=== PATIENT | female | born 1985 | race American Indian/Alaskan Native ===

== ENCOUNTER 2018-01-10 07:34 | Day surgery (SDC) | payer BC ==
[~2018-01-10 07:34] MED LIST: NACL 0.9% IR ONE
[2018-01-10] MEDS ORDERED: TYLENOL PO PRN (09:02)
[2018-01-10] MEDS ORDERED: ZOFRAN IV PRN (09:02)
[2018-01-10] MEDS ORDERED: TORADOL IV PRN (09:02)
--- NOTE | 2018-01-10 09:10 | Anesthesia Consultation ---
Anesthesia Consult and Med Hx Date of service: 01/10/18 - Airway Anesthetic Teeth Evaluation: Good ROM Head & Neck: Adequate Mental/Hyoid Distance: Adequate Mallampati Class: Class II Intubation Access Assessment: Probably Good - Pulmonary Exam CTA: Yes - Pre-Operative Health Status ASA Pre-Surgery Classification: ASA1 Proposed Anesthetic Plan: General - Pulmonary Hx Smoking: No - Cardiovascular System Hx Hypertension: No - Central Nervous System Hx Neuromuscular Disorder: No Hx Psychiatric Problems: No - Other Systems Hx Alcohol Use: Yes (OCCAS) Hx Substance Use: No
--- NOTE | 2018-01-10 09:10 | Anesthesia Day of Surgery ---
Anesthesia Day of Surgery - Day of Surgery Patient Examined: Yes Patient H&P Reviewed: Yes Patient is NPO: Yes
[2018-01-10] MEDS ORDERED: NACL BACTERIOSTATIC INFILTRATI ONE (09:19)
[2018-01-10] MEDS ORDERED: SUBLIMAZE ONE ×2 (09:19→10:51)
[2018-01-10] MEDS ORDERED: DIPRIVAN 10 MG/ML IV ONE ×2 (09:19→10:24)
--- NOTE | 2018-01-10 09:21 | Discharge Summary ---
Short Stay Discharge Plan Activity: no restrictions Weight Bearing Status: Full Weight Bearing Diet: regular Wound: remove dressing (72hrs) Follow up with: PRIMARY CAREMD [Primary Care Provider] - 6 Weeks WORK,ESTUARDO Rodney JR, MD [Staff Physician] - 7 Days
--- NOTE | 2018-01-10 09:22 | Short Stay Summary ---
Short Stay Documentation Date of service: 01/10/18 - Allergies and Medications Current Medications: Allergies Sulfa (Sulfonamide Antibiotics) Allergy (Verified 01/07/18 14:48) Itching Home Medications Medication Instructions Recorded Confirmed Last Taken Type No Known Home Medications [No 01/07/18 01/07/18 Unknown History Reported Home Medications] Active Medications Acetaminophen (Tylenol) 650 mg PO ONCE PRN PRN Reason: Pain, Mild (1-3) Stop: 01/10/18 18:00 Famotidine (Pepcid) 20 mg IV PREOP NR Stop: 01/10/18 23:59 Hydromorphone HCl (Dilaudid) 0.5 mg IV Q10MIN PRN PRN Reason: Pain , Severe (7-10) Stop: 01/10/18 18:00 Lactated Ringer's (Lactated Ringers) 1,000 mls @ 42 mls/hr IV DIRECT ADRIA Ketorolac Tromethamine (Toradol) 15 mg IV ONCE PRN PRN Reason: Pain, Mild (1-3) Stop: 01/10/18 18:00 Midazolam HCl (Versed) 2 mg IV PREOP NR Stop: 01/10/18 23:59 Ondansetron HCl (Zofran) 4 mg IV ONCE PRN PRN Reason: Nausea And Vomiting Stop: 01/10/18 18:00 - Brief post op/procedure progress note Date of procedure: 01/10/18 Pre-op diagnosis: Macromastia Post-op diagnosis: same Procedure: Sloan. Breast REduction Anesthesia: GETA Findings: RT Breast LT Breast Surgeon: ESTUARDO GILBERT JR Estimated blood loss: 50-100ml Specimen disposition: to lab Condition: stable - Disposition Condition at discharge: Good Disposition: DC-01 TO HOME OR SELFCARE Short Stay Discharge Plan Follow up with: ESTUARDO GILBERT JR, MD [Staff Physician] - 7 Days PRIMARY CARE, [Primary Care Provider] - 6 Weeks
[2018-01-10] MEDS ORDERED: LACTATED RINGERS 1,000 ML IV SCH (10:00)
[2018-01-10] MEDS ORDERED: ANCEF/STERILE WATER 2 GM/20 ML IV NR (10:00)
[2018-01-10] MEDS ORDERED: VERSED IV NR (10:00)
[2018-01-10] MEDS ORDERED: PEPCID IV NR (10:00)
[2018-01-10] MEDS ORDERED: DECADRON ONE (10:13)
[2018-01-10] MEDS ORDERED: QUELICIN ONE (10:13)
[2018-01-10] MEDS ORDERED: ZOFRAN ONE (10:13)
[2018-01-10] MEDS ORDERED: ZEMURON IV ONE (10:13)
[2018-01-10] MEDS ORDERED: XYLOCAINE MPF 2% ONE (10:13)
[2018-01-10] MEDS ORDERED: LACTATED RINGERS 1,000 ML ONE (10:44)
[2018-01-10] MEDS ORDERED: BLOXIVERZ ONE (11:12)
[2018-01-10] MEDS ORDERED: ROBINUL ONE (11:12)
[2018-01-10] MEDS: DILAUDID IV PRN ×3 (12:56→13:28)
--- NOTE | 2018-01-10 13:34 | Operative Report ---
SERVICE: Plastic Surgery PREOPERATIVE DIAGNOSIS: Macromastia. POSTOPERATIVE DIAGNOSIS: Macromastia. PROCEDURE: Bilateral reduction mammoplasty. SURGEON: Chuck Baird MD TSO: Zeke Sanchez CSA FINDINGS: 800 gm removed from each breast. DESCRIPTION OF PROCEDURE: The patient was brought in to the operating room and placed on the table in supine position. Following administration of general anesthesia, bilateral breasts were prepped with Betadine solution and draped in the usual sterile manner. A #10 blade scalpel was used to make a circumareolar skin incision followed by de-epithelization of inferior dermal pedicle. Modified Sanchez pattern skin markings were incised with scalpel and deepened through the subcutaneous fat and breast tissue using the electrocautery. Skin flaps were raised in standard manner as was fashioning of an inferior central mound pedicle. Breast tissue was resected and sent to pathology as specimen. Hemostasis was controlled using electrocautery. Closure was performed over 10 mm MELISSA drains using interrupted and running subcuticular 2-0 Monocryl sutures. Mastisol, Steri-Strips, and sterile dressings applied. The patient will be receiving her first of 3 sessions of radiation therapy to help prevent recurrent keloid scarring. JOB# [id number] FTW/NTS
[2018-01-10] MEDS ORDERED: PERCOCET 5/325 PO SCH (14:26)
[2018-01-10 16:26] VITALS: BP 125/68
== END 2018-01-10 14:51 | disposition home or self-care (01) ==
LOC: OR 07:34
PROVIDERS: ATTEND Plastic Surgery
DX: N60.11 Diffuse cystic mastopathy of right breast (principal); N62 Hypertrophy of breast; N64.4 Mastodynia; L30.4 Erythema intertrigo; Z79.899 Other long term (current) drug therapy; Z88.2 Allergy status to sulfonamides; Z98.891 History of uterine scar from previous surgery; Z98.890 Other specified postprocedural states
CPT/HCPCS: 19318; 81025; 88305; J0330; J0690; J1100; J1170; J2250; J2405; J2704; J2710; J3010; J7120